=== PATIENT | female | born 1965 | race Caucasian/White ===

== ENCOUNTER 2017-04-05 13:15 | Emergency (ER) | payer OTHER ==
[~2017-04-05] VITALS: Ht 157.5 cm; Wt 74.0 kg
[2017-04-05 13:31] VITALS: Ht 157.5 cm; Wt 74.0 kg
[2017-04-05] MEDS ORDERED: NAPR-260 PO (15:55)
--- NOTE | 2017-04-05 16:04 | ERD ---
ER Documentation Chief Complaint Chief Complaint R SHOULDER PAIN STARTED SINCE SUNDAY HPI 51-year-old female complains a sharp achy pain that started in her right shoulder about 2 or 3 days ago that goes down her arm. The patient describes as achy pain, worse when she moves her shoulder and better at rest. She has no weakness, paresthesias. She has no swelling to her upper extremity. ROS All systems reviewed and are negative except as per history of present illness. Medications Home Meds Active Scripts Naproxen* (Naprosyn*) 500 Mg Tablet, 500 MG PO BID Y for PAIN AND/OR INFLAMMATION, #30 TAB Prov:VINICIUS AZUL PA-C 04/05/17 Allergies Allergies: Coded Allergies: No Known Allergy (Unverified , 04/05/17) PMhx/Soc Medical and Surgical Hx: pt denies Medical Hx, pt denies Surgical Hx Physical Exam Vitals Vital Signs Date Time Temp Pulse Resp B/P Pulse Ox O2 Delivery O2 Flow Rate FiO2 04/05/17 13:31 98.0 69 18 138/86 98 Physical Exam General: Well-developed, well-nourished. The patient appears in no acute distress. HEENT: Head is normocephalic, atraumatic. No scleral icterus. Neck: Supple. Nontender. Lungs: Clear to auscultation. Normal air movement. Heart: Regular rate and rhythm. S1 and S2 are normal. No murmurs, gallops, or rubs. Abdomen: Nondistended. Extremities: Right shoulder has pain with abduction, internal rotation. There is no weakness, no swelling. Patient has no bony deformities, no erythema or warmth. Neurologic: Alert and oriented 3. No focal deficits. Normal speech and gait. Skin: Normal turgor. No rash or lesions. Procedures/MDM 51-year-old female presents with right-sided shoulder pain that is sharp, aching goes down her right anterior shoulder to her humerus, is most consistent with a rotator cuff injury, tendinitis. No fracture, no dislocation is suspected at this time based on her examination. Patient's physical examination pain with abduction and internal rotation most consistent with supraspinatus and infraspinatus rotator cuff injury. There is no weakness to indicate a tear. No signs of infection, pt is stable for outpatient management, Departure Diagnosis: Primary Impression: Rotator cuff tendonitis Condition: Good Patient Instructions: Understanding Rotator Cuff Injuries Additional Instructions: Call your primary care doctor TOMORROW for an appointment during the next 1-2 days.See the doctor sooner or return here if your condition worsens before your appointment time. VINICIUS AZUL PA-C Apr 05, 2017 16:04
== END 2017-04-05 16:05 | disposition home or self-care (01) ==
LOC: FTE 13:15
DX: M77.9 Enthesopathy, unspecified (principal)
CPT/HCPCS: 99283